=== PATIENT | male | born 1970 | race Native Hawaiian/Other Pacific Islander ===

== ENCOUNTER 2016-12-21 15:28 | Outpatient (CLI) | payer OTHER ==
[~2016-12-21 15:28] MED LIST: ACID REDUCER M150 MG PO; ALPR0.5T24 PO; BACLOFEN10 MG PO; BENTYL10 MG PO; BUT/APAP/CA1 PO; CALAN SR120 MG PO; CARAFATE1 GM PO; CITA20TA2 PO; CLEM2.687 PO; DOCU100C10 PO; EDLUAR10 MG PO; GABA300C2 PO; LEVETIRACETA500 M1 PO; LEVETIRACETA500 MG PO; NEURONTIN 100M100 MG PO; OMEPRAZOLE40 MG PO; SIMV20TA2 PO; TEGRETOL XR200 MG PO; VESICARE10 MG PO; XANAX2 MG PO
== END 2016-12-21 19:09 | disposition home or self-care (01) ==
LOC: LAB 15:28
DX: N39.0 Urinary tract infection, site not specified (principal)
CPT/HCPCS: 81000; 87077; 87086; 87088; 87186

== ENCOUNTER 2017-02-08 15:19 | Outpatient (CLI) | payer OTHER | END 2017-02-08 19:36 | disposition home or self-care (01) | LOC: LAB 15:19 | DX: N39.0 Urinary tract infection, site not specified (principal); R35.0 Frequency of micturition | CPT/HCPCS: 81000; 87086; 87088 ==

== ENCOUNTER 2017-08-30 09:54 | Outpatient (CLI) | payer OTHER | END 2017-08-30 18:43 | disposition home or self-care (01) | LOC: CT 09:54 | DX: R10.84 Generalized abdominal pain (principal) | CPT/HCPCS: 82565; 84520 ==

== ENCOUNTER 2017-09-29 12:33 | Outpatient (CLI) | payer OTHER | END 2017-09-29 23:01 | disposition home or self-care (01) | LOC: LAB 12:33 | DX: N39.0 Urinary tract infection, site not specified (principal); R10.84 Generalized abdominal pain | CPT/HCPCS: 81000; 87077; 87086; 87088; 87185; 87186 ==

== ENCOUNTER 2018-01-22 18:48 | Outpatient (CLI) | payer OTHER | END 2018-01-22 19:06 | disposition short-term general hospital (02) | LOC: AMB 18:48 | DX: G40.89 Other seizures (principal); R11.2 Nausea with vomiting, unspecified; G80.8 Other cerebral palsy | CPT/HCPCS: A0425; A0429 ==

== ENCOUNTER 2018-01-22 19:19 | Observation (INO) | payer OTHER ==
[~2018-01-22] VITALS: Ht 172.7 cm; Wt 70.8 kg
[2018-01-22 19:25] VITALS: BP 148/98; TEMP 99.6
[2018-01-22 19:37] LABS: PLATELET COUNT 265 K/uL (142-355)
[2018-01-22 19:44] LABS: POTASSIUM 3.8 mmol/L (3.6-5.2)
[2018-01-22 23:59] VITALS: BP 121/82; TEMP 98; Ht 172.7 cm; Wt 70.8 kg
[2018-01-23] VITALS: BP 120/78; TEMP 97.7
[2018-01-23 04:00] VITALS: BP 102/67; TEMP 98.2
[2018-01-23 05:27] LABS: PLATELET COUNT 246 K/uL (142-355)
[2018-01-23 05:39] LABS: POTASSIUM 3.6 mmol/L (3.6-5.2)
--- NOTE | 2018-01-23 06:27 | NUR ---
NO SEIZURES THIS SHIFT.
[2018-01-23 08:00] VITALS: BP 107/59; TEMP 97.9
--- NOTE | 2018-01-23 08:14 | NUR ---
PATIENT WAS ADMITTED WITH CEREBRAL PALSY, SEIZURES, DEHYDRATION, GASTROENTERITIS AND IS ON A REGULAR DIET PLAN AND IBW 154+/-10% AND WEIGHT AT 156 AND IS 102% IB AND KCAL NEEDS 1209-9109, PRO 70-80 GRAMS AND FLUIDS 1152-9600 ML PER DAY. RECOMMEND: 1-DEHYDRATION- INCREASE FLUIDS TOLERATED 2-GASTROENTERITIS- BLAND OR JACK
--- NOTE | 2018-01-23 19:46 | NUR ---
IV D/C'D. FAMILY HERE AT THIS TIME TO TAKE PT HOME. D/C INSTRUCTIONS GIVEN TO FAMILY AND PT. PT TO MAKE FU WITH KADE HUYNH IN 3-5 DAYS. PT HAS NO FUTHER QUESTIONS. PT ASSISTED INTO W/C AND INTO FAMILY'S VAN. NO PROBLEMS NOTED.
== END 2018-01-23 17:05 | disposition home or self-care (01) ==
LOC: ED 19:19 → MED/SURG 20:30
DX: A08.39 Other viral enteritis (principal); G80.8 Other cerebral palsy; G40.89 Other seizures; E86.0 Dehydration; R00.0 Tachycardia, unspecified
CPT/HCPCS: 36415; 80053; 82150; 83690; 83735; 85027; 93005; 96360; 96361; 96365; 99220; 99284; G0378; Q0177

== ENCOUNTER 2018-03-23 12:27 | Outpatient (CLI) | payer OTHER | END 2018-03-23 19:42 | disposition home or self-care (01) | LOC: CT 12:27 | DX: R51 Headache (principal) ==

== ENCOUNTER 2018-05-03 12:20 | Outpatient (CLI) | payer OTHER | END 2018-05-03 19:44 | disposition home or self-care (01) | LOC: LAB 12:20 | DX: R10.2 Pelvic and perineal pain (principal) | CPT/HCPCS: 81000 ==

== ENCOUNTER 2019-03-28 10:14 | Outpatient (CLI) | payer OTHER ==
[2019-03-28 10:51] LABS: PLATELET COUNT 218 K/uL (142-355)
[2019-03-28 11:17] LABS: POTASSIUM 4.1 mmol/L (3.6-5.2)
== END 2019-03-28 19:53 | disposition home or self-care (01) ==
LOC: LABW 10:14
PROVIDERS: Nurse Practitioner
DX: R53.82 Chronic fatigue, unspecified (principal); E78.00 Pure hypercholesterolemia, unspecified; Z12.5 Encounter for screening for malignant neoplasm of prostate; E53.8 Deficiency of other specified B group vitamins
CPT/HCPCS: 36415; 80053; 80061; 82607; 84153; 84443; 85027

== ENCOUNTER 2019-04-12 11:23 | Outpatient (CLI) | payer OTHER | END 2019-04-12 22:06 | disposition home or self-care (01) | LOC: CT 11:23 | DX: R10.2 Pelvic and perineal pain (principal) ==

== ENCOUNTER 2019-09-03 13:02 | Outpatient (CLI) | payer OTHER ==
[2019-09-04] MEDS ORDERED: BACLOFEN10 MG PO (09:59)
[2019-09-04] MEDS ORDERED: TEGRETOL XR200 MG PO (10:01)
[2019-09-04] MEDS ORDERED: CLEM2.687 PO (10:03)
[2019-09-04] MEDS ORDERED: DICYCLOMINE HYD10 MG PO (10:05)
[2019-09-04] MEDS ORDERED: DOCU100C10 PO (10:06)
[2019-09-04] MEDS ORDERED: GABA300C2 PO ×2 (10:08)
[2019-09-04] MEDS ORDERED: ACID CONTROL20 MG PO (10:10)
[2019-09-04] MEDS ORDERED: CARAFATE1 GM PO (10:12)
[2019-09-04] MEDS ORDERED: CALAN SR120 MG PO (10:13)
[2019-09-04] MEDS ORDERED: ALPR0.5T24 PO (10:17)
[2019-09-04] MEDS ORDERED: TAMS0.4C PO (10:17)
[2019-09-04] MEDS ORDERED: NAPROSYN500 MG PO (10:18)
[2019-09-04] MEDS ORDERED: MULTIVITAMI2 PO (10:21)
[2019-09-04] MEDS ORDERED: PANTOPRAZOLE 40MG TA PO (10:22)
[2019-09-04] MEDS ORDERED: IRON (FERROUS S50 MG PO (10:23)
[2019-09-04] MEDS ORDERED: BENADRYL EX (10:24)
[2019-09-04] MEDS ORDERED: TRIANEX0.05 % EX (10:26)
[2019-09-04] MEDS ORDERED: DESITIN13 % EX (10:26)
[2019-09-04] MEDS ORDERED: DICL1GEL2 TOP (10:32)
[2019-09-04] MEDS ORDERED: ALUM-67 PO (10:36)
[2019-09-04] MEDS ORDERED: VISINE-A OPTH (10:37)
[2019-09-04] MEDS ORDERED: CENTANY EX (10:37)
== END 2019-09-03 13:23 | disposition short-term general hospital (02) ==
LOC: AMB 13:02
DX: R05 Cough (principal)
CPT/HCPCS: A0425; A0429

== ENCOUNTER 2019-09-03 13:25 | Observation (INO) | payer OTHER ==
[~2019-09-03] VITALS: Ht 172.7 cm; Wt 69.1 kg
[2019-09-03 13:25] VITALS: BP 108/70; TEMP 98.1
[2019-09-03 13:56] LABS: PLATELET COUNT 207 K/uL (142-355)
[2019-09-03 14:17] LABS: POTASSIUM 4.1 mmol/L (3.6-5.2)
[2019-09-03 20:00] VITALS: BP 111/79; TEMP 98.6
[2019-09-04] VITALS (8 sets, daily range): BP systolic 11–1244; BP diastolic 56–83; TEMP 97.7–99.6; Ht 172.7 cm; Wt 69.1 kg
[2019-09-04 06:14] LABS: PLATELET COUNT 223 K/uL (142-355)
[2019-09-04 06:21] LABS: POTASSIUM 4.1 mmol/L (3.6-5.2)
[2019-09-04] MEDS ORDERED: BACLOFEN10 MG PO (09:59)
[2019-09-04] MEDS ORDERED: TEGRETOL XR200 MG PO (10:01)
[2019-09-04] MEDS ORDERED: CLEM2.687 PO (10:03)
[2019-09-04] MEDS ORDERED: DICYCLOMINE HYD10 MG PO (10:05)
[2019-09-04] MEDS ORDERED: DOCU100C10 PO (10:06)
[2019-09-04] MEDS ORDERED: GABA300C2 PO ×2 (10:08)
[2019-09-04] MEDS ORDERED: ACID CONTROL20 MG PO (10:10)
[2019-09-04] MEDS ORDERED: CARAFATE1 GM PO (10:12)
[2019-09-04] MEDS ORDERED: CALAN SR120 MG PO (10:13)
[2019-09-04] MEDS ORDERED: TAMS0.4C PO (10:17)
[2019-09-04] MEDS ORDERED: ALPR0.5T24 PO (10:17)
[2019-09-04] MEDS ORDERED: NAPROSYN500 MG PO (10:18)
[2019-09-04] MEDS ORDERED: MULTIVITAMI2 PO (10:21)
[2019-09-04] MEDS ORDERED: PANTOPRAZOLE 40MG TA PO (10:22)
[2019-09-04] MEDS ORDERED: IRON (FERROUS S50 MG PO (10:23)
[2019-09-04] MEDS ORDERED: BENADRYL EX (10:24)
[2019-09-04] MEDS ORDERED: TRIANEX0.05 % EX (10:26)
[2019-09-04] MEDS ORDERED: DESITIN13 % EX (10:26)
[2019-09-04] MEDS ORDERED: DICL1GEL2 TOP (10:32)
[2019-09-04] MEDS ORDERED: ALUM-67 PO (10:36)
[2019-09-04] MEDS ORDERED: VISINE-A OPTH (10:37)
[2019-09-04] MEDS ORDERED: CENTANY EX (10:37)
[2019-09-05 04:01] VITALS: BP 110/71; TEMP 98.9
[2019-09-05 08:00] VITALS: BP 128/83; TEMP 98.5
[2019-09-05 12:00] VITALS: BP 124/79; TEMP 98.4
== END 2019-09-05 17:10 | disposition home or self-care (01) ==
LOC: ED 13:25 → MED/SURG 17:00
PROVIDERS: Internal Medicine; ADMIT Family Medicine
DX: J18.8 Other pneumonia, unspecified organism (principal); G80.8 Other cerebral palsy; G40.802 Other epilepsy, not intractable, without status epilepticus; K21.9 Gastro-esophageal reflux disease without esophagitis; I10 Essential (primary) hypertension; N40.1 Benign prostatic hyperplasia with lower urinary tract symptoms; R33.8 Other retention of urine; I48.91 Unspecified atrial fibrillation
CPT/HCPCS: 80048; 80053; 85027; 87040; 87502; 87651; 87899; 94640; 94664; 94668; 94760; 96365; 99220; 99284; G0378; J0132; J0456; J1100; J1650; J2543; J2920

== ENCOUNTER 2020-07-15 10:00 | Outpatient (CLI) | payer OTHER ==
[~2020-07-15 10:00] MED LIST changes: +ACID CONTROL20 MG PO; +ALUM-67 PO; +BENADRYL EX; +CENTANY EX; +DESITIN13 % EX; +DICL1GEL2 TOP; +DICYCLOMINE HYD10 MG PO; +IRON (FERROUS S50 MG PO; +MULTIVITAMI2 PO; +NAPROSYN500 MG PO; +PANTOPRAZOLE 40MG TA PO; +TAMS0.4C PO; +TRIANEX0.05 % EX; +VISINE-A OPTH
== END 2020-07-15 21:40 | disposition home or self-care (01) ==
LOC: US 10:00
PROVIDERS: ATTEND Nurse Practitioner Family
DX: R10.30 Lower abdominal pain, unspecified (principal); R10.2 Pelvic and perineal pain

== ENCOUNTER 2020-09-05 08:29 | Emergency (ER) | payer OTHER ==
[~2020-09-05] VITALS: Ht 172.7 cm; Wt 68.9 kg
[2020-09-05 08:30] VITALS: TEMP 97
[2020-09-05 08:47] LABS: PLATELET COUNT 251 K/uL (142-355)
[2020-09-05 08:51] LABS: POTASSIUM 3.6 mmol/L (3.6-5.2)
[2020-09-05 12:22] VITALS: BP 125/81
== END 2020-09-05 13:14 | disposition home or self-care (01) ==
LOC: ED 08:29
PROVIDERS: Family Medicine
DX: T42.4X1A Poisoning by benzodiazepines, accidental (unintentional), initial encounter (principal); R40.0 Somnolence; Y93.89 Activity, other specified; X58.XXXA Exposure to other specified factors, initial encounter; Y92.89 Other specified places as the place of occurrence of the external cause
CPT/HCPCS: 80053; 81000; 85027; 96360; 99284

== ENCOUNTER 2021-01-25 16:20 | Outpatient (CLI) | payer OTHER | END 2021-01-25 19:58 | disposition home or self-care (01) | LOC: RAD 16:20 | PROVIDERS: ATTEND Nurse Practitioner Family | DX: R07.81 Pleurodynia (principal); R05 Cough ==

== ENCOUNTER 2023-04-11 15:12 | Outpatient (CLI) | payer OTHER | END 2023-04-11 19:42 | disposition home or self-care (01) | LOC: RAD 15:12 | PROVIDERS: ATTEND Nurse Practitioner Family | DX: M79.604 Pain in right leg (principal) ==